=== PATIENT | female | born 1985 | race Caucasian/White ===

== ENCOUNTER 2021-03-15 21:02 | Emergency (ER) | payer OTHER ==
[~2021-03-15] VITALS: Ht 175.3 cm; Wt 86.2 kg
[2021-03-15 21:25] LABS: ABSOLUTE NEUTROPHILS 5.2 thou/uL (1.4-8.2); BASOPHILS 0.8 % (0.0-2.0); EOSINOPHILS 1.6 % (0.0-3.0); HEMATOCRIT 37.9 % (37.0-47.0); HEMOGLOBIN 12.6 gm/dL (12.0-15.0); LYMPHOCYTES 29.5 % (24.0-44.0); MCH 28.7 pg (26.0-34.0); MCHC 33.3 g/dL (28.0-37.0); PLATELET COUNT 249 thou/uL (150-400); POLYS 59.1 % (36.0-66.0); RBC 4.41 mil/uL (4.20-5.00); RDW 13.7 % (10.5-14.5); WBC 8.8 thou/uL (4.0-11.0)
[2021-03-15 21:33] LABS: ANION GAP 11 mmol/L (7-16); BUN 15 mg/dL (7-18); CALCIUM 8.4 mg/dL (8.5-10.1); CHLORIDE 103 mmol/L (98-107); CO2 25 mmol/L (21-32); GLUCOSE 129 mg/dL (74-106); SODIUM 139 mmol/L (136-145)
[2021-03-15 21:36] LABS: POTASSIUM 2.9 mmol/L (3.5-5.1)
[2021-03-15 21:41] LABS: TROPONIN-I <0.06 ng/mL (<0.06)
[2021-03-16 00:47] VITALS: BP 153/75
[2021-03-16] MEDS ORDERED: XANAX 0.5 MG0.5 M1 PO (00:51)
--- NOTE | 2021-03-16 09:42 | EKG ---
[place] [address] [facility] [employer] [address] ELECTROCARDIOGRAM REPORT Name: SALTY VICK Room #: DEP KAIA Burt#: [id number] Admission: 03/15/21 Attend Phys: Discharge: 03/16/21 Date of : 83 Report #: [id number] [facility] ED Test Date: 2021-03-15 Test Time: 21:14:43 Pat Name: SALTY VICK Department: Room: Gender: F Research Rec[employer]: KEMAR : 1985 Requested By: Trini Madera Order Number: [id number] MD: Yuval Tineo Measurements Intervals [place] Rate: 101 P: 49 IA: 170 QRS: 6 QRSD: 105 T: -1 QT: 364 QTc: 472 Interpretive Statements Sinus tachycardia Nonspecific ST segment abnormality No previous ECG available for comparison Electronically Signed On 03-16-2021 9:42:03 CDT by Yuval Tineo [email or web address] <ELECTRONICALLY SIGNED> By: Yuval Tineo MD, [facility] 03/16/21 [id number] Yuval Tineo MD, FACC /EPI
== END 2021-03-16 01:21 | disposition home or self-care (01) ==
LOC: ER 21:02
PROVIDERS: Emergency Medicine
DX: R00.2 Palpitations (principal); F41.9 Anxiety disorder, unspecified